=== PATIENT | male | born 1975 | race Caucasian/White ===

== ENCOUNTER 2017-08-08 01:27 | Emergency (ER) | payer SELFPAY | END 2017-08-08 06:37 | disposition home or self-care (01) | LOC: E/R 01:27 | DX: F10.920 Alcohol use, unspecified with intoxication, uncomplicated (principal); R40.2142 Coma scale, eyes open, spontaneous, at arrival to emergency department; R40.2362 Coma scale, best motor response, obeys commands, at arrival to emergency department; R40.2242 Coma scale, best verbal response, confused conversation, at arrival to emergency department; R51 Headache | CPT/HCPCS: 70450; 99284-25 ==